=== PATIENT | male | born 1965 | race Two or more races ===

== ENCOUNTER 2016-12-20 20:10 | Emergency (ER) | payer OTHER ==
[2016-12-20 20:15] VITALS: BP 138/63
--- NOTE | 2016-12-20 20:43 | PHYS DOC ---
Past Medical History Past Medical History: Other Additional Past Medical Histor: Chronic back pain Past Surgical History: Other Additional Past Surgical Histo: "stomach surgery" Alcohol Use: None Drug Use: None Adult General Chief Complaint Chief Complaint: LOWER EXT PAIN HPI HPI Patient is a 51 year old male who presents emergency Department with complaint of left foot pain and left knee pain that is been ongoing for the past 48 hours. Patient does have a history of chronic low back pain. He does not believe that this is related to chronic low back pain. He denies radiation of the back pain down his leg and into the foot. He denies injury to his foot. He denies any history of inflammatory joint disease or chronic medical problems other than chronic low back pain. He denies incontinence of urine and bowel or saddle anesthesia. Review of Systems Review of Systems Constitutional: Denies fever or chills [] Eyes: Denies change in visual acuity, redness, or eye pain [] HENT: Denies nasal congestion or sore throat [] Respiratory: Denies cough or shortness of breath [] Cardiovascular: No additional information not addressed in HPI [] GI: Denies abdominal pain, nausea, vomiting, bloody stools or diarrhea [] : Denies dysuria or hematuria [] Musculoskeletal: Denies back pain or joint pain [] Integument: Denies rash or skin lesions [] Neurologic: Denies headache, focal weakness or sensory changes [] Endocrine: Denies polyuria or polydipsia [] Current Medications Current Medications Current Medications Medications (Trade) Dose Ordered Sig/Belen Start Time Stop Time Status Last Admin Dose Admin Acetaminophen/ Hydrocodone Bitart (Lortab 5/325) 1 tab 1X ONCE 12/20/16 21:00 12/20/16 21:01 DC 12/20/16 20:57 1 TAB Allergies Allergies Allergies Coded Allergies Type Severity Reaction Last Updated Verified No Known Drug Allergies 12/20/16 No Physical Exam Physical Exam Constitutional: Well developed, well nourished, mild distress, non-toxic appearance. [] HENT: Normocephalic, atraumatic, bilateral external ears normal, oropharynx moist, no oral exudates, nose normal. [] Eyes: PERRLA, EOMI, conjunctiva normal, no discharge. [] Neck: Normal range of motion, no tenderness, supple, no stridor. [] Cardiovascular:Heart rate regular rhythm, no murmur [] Lungs & Thorax: Bilateral breath sounds clear to auscultation [] Abdomen: Bowel sounds normal, soft, no tenderness, no masses, no pulsatile masses. [] Skin: Warm, dry, no erythema, no rash. [] Back: No tenderness, no CVA tenderness. [] Extremities: Left foot with redness and mild swelling around the first MTPJ. There is no fluctuant pocket or fusiform swelling to the great toe. There is no ascending lymphangitis. Patient reports that the pain radiates up his left great toe up his leg. Left knee is normal in appearance and nontender palpation. Neurologic: Alert and oriented X 3, normal motor function, normal sensory function, no focal deficits noted. [] Psychologic: Affect normal, judgement normal, mood normal. [] Current Patient Data Vital Signs Vital Signs Date Time Temp Pulse Resp B/P (MAP) Pulse Ox O2 Delivery O2 Flow Rate FiO2 12/20/16 20:15 98.4 84 16 100 Room Air 98.4 Lab Values Laboratory Tests Test 12/20/16 20:45 Uric Acid 4.7 mg/dL (3.5-7.2) EKG EKG [] Radiology/Procedures Radiology/Procedures 3 views of patient's left foot were performed with adequate technique. There is no evidence of bony abnormality. Course & Med Decision Making Course & Med Decision Making Clinically, patient has gout. His uric acid is not elevated indicating such at this time. This may be due to the onset being under 24 hours. I will treat him with prednisone and Pioneer. Recommended a follow up with his primary care doctor next week. Dragon Disclaimer Dragon Disclaimer This electronic medical record was generated, in whole or in part, using a voice recognition dictation system. Departure Departure Impression: Primary Impression: Gout Disposition: HOME, SELF-CARE Condition: GOOD Patient Instructions: Gout, [id number] Additional Instructions: 1. X-rays of the foot are normal. 2. Review the discharge instructions provided for self-care and reasons to return the emergency department. 3. Take the medication as prescribed. 4. Follow-up with primary care doctor's office within 7-10 days for reexamination. Scripts Prednisone (PREDNISONE) 20 Mg Tablet 2 TAB PO DAILY for 5 Days, #10 TAB Prov: CAR RAMIREZ 12/20/16 Hydrocodone/Apap 5-325 (NORCO 5-325 TABLET) 1 Each Tablet 1 TAB PO PRN Q6HRS Y for PAIN, #15 TAB 0 Refills Prov: CAR RAMIREZ 12/20/16 CAR RAMIREZ December 20, 2016 20:43
[2016-12-20] MEDS ORDERED: HYDROCODONE/APAP 5/325MG TABLET. PO ONE (21:00)
[2016-12-20] MEDS ORDERED: PRED20TA PO (21:40)
[2016-12-20] MEDS ORDERED: HYDR-971 PO (21:40)
--- NOTE | 2016-12-21 08:29 | RAD ---
Indication pain and swelling. AP oblique and lateral views of the left foot were obtained. No acute or significant bony abnormality is seen
== END 2016-12-20 21:47 | disposition home or self-care (01) ==
LOC: ER 20:10
DX: M10.9 Gout, unspecified (principal); G89.29 Other chronic pain
CPT/HCPCS: 36415; 73630; 84550; 99285-25